=== PATIENT | female | born 1995 | race Caucasian/White ===

== ENCOUNTER 2020-01-09 14:45 | Outpatient (CLI) | payer OTHER, SELFPAY ==
--- NOTE | 2020-01-09 14:58 | US_ITS ---
WS: [id number] Pelvic ultrasound, 01/09/2020 Clinical Data: DYSMENORRHEA Comparison: Pelvic ultrasound, 01/29/2015. Findings: The uterus measures 7.61 cm x 4.9 cm x 4.0 cm. The endometrium is 0.9 cm. No intrauterine or abnormal intrauterine mass is seen. The left ovary measures 1.9 cm x 1.4 cm x 1.3 cm with no cysts or masses. The right ovary measures 3.4 cm x 2.4 cm x 2.0 cm with no cysts or masses. There are prominent vessels in the left adnexa. US/US pelvic with transvaginal Impression: Negative pelvic ultrasound.
== END 2020-01-09 14:46 | disposition home or self-care (01) ==
LOC: RAD 14:56
PROVIDERS: Family Provider Family Medicine; PCP Family Medicine; Visit Provider Family Medicine
DX: N94.6 Dysmenorrhea, unspecified (principal)
CPT/HCPCS: 76830; 76856

== ENCOUNTER → 2020-02-17 12:40 | Outpatient (BNVA) | payer OTHER, SELFPAY | PROVIDERS: Family Provider Family Medicine; PCP Family Medicine; Referring Provider Family Medicine; Visit Provider Nurse Practitioner Women's Health | DX: A74.9 Chlamydial infection, unspecified (principal); R10.2 Pelvic and perineal pain | CPT/HCPCS: 87491 ==

== ENCOUNTER → 2021-04-19 14:28 | Outpatient (BNVA) | payer OTHER, SELFPAY | PROVIDERS: Family Provider Family Medicine; PCP Family Medicine; Visit Provider Nurse Practitioner Women's Health | DX: N94.10 Unspecified dyspareunia (principal); N85.4 Malposition of uterus; N85.2 Hypertrophy of uterus | CPT/HCPCS: 76830 ==

== ENCOUNTER → 2021-05-19 15:25 | Outpatient (BNVA) | payer OTHER, SELFPAY | PROVIDERS: Family Provider Family Medicine; PCP Family Medicine; Visit Provider Obstetrics & Gynecology | DX: Z01.818 Encounter for other preprocedural examination (principal); Z20.822 Contact with and (suspected) exposure to COVID-19; N30.10 Interstitial cystitis (chronic) without hematuria; R10.2 Pelvic and perineal pain | CPT/HCPCS: 87635 ==

== ENCOUNTER 2021-05-24 11:15 | Day surgery (SDC) | payer OTHER, SELFPAY ==
[2021-05-23 15:12] VITALS: BMI 21.4
[2021-05-24] VITALS (13 sets, daily range): BP systolic 91–129; BP diastolic 53–85; PULSE 68–100; RESP 15–18; TEMP 36.2–37; O2SAT 93–99
[2021-05-24] MEDS: acetaminophen 1,000 MG/100 ML PIGGYBACK 400 MG IV (11:42)
[2021-05-24] MEDS: ketorolac 30 mg/mL INJ IVP (11:43)
[2021-05-24] MEDS: sodium chloride 0.9% 1,000 ML 30 ML IV (11:43)
[2021-05-24] MEDS: CELEcoxib 200 mg Capsule 400 MG PO (11:43)
[2021-05-24] MEDS: gabapentin 300 mg Capsule PO (11:43)
[2021-05-24 11:51] LABS: OR HCG Qualitative Urine Negative (Negative)
[2021-05-24 11:57] LABS: Basophils # 0.1 10^3/uL (0.0-0.1); Basophils % 0.9 %; Eosinophils # 0.4 10^3/uL (0.0-0.8); Eosinophils % 4.7 %; Hematocrit 40.9 % (37.0-47.0); Hemoglobin 13.4 g/dL (11.5-15.3); Lymphocytes # 1.9 10^3/uL (0.8-4.8); Lymphocytes % 21.4 %; Mean Corpuscular HGB Conc 32.8 g/dL (30.0-36.0); Mean Corpuscular Hemoglobin 29.8 pg (28.0-34.0); Mean Corpuscular Volume 91.1 fL (81-99); Mean Platelet Volume 10.5 fL (7.4-10.4); Monocytes # 0.6 10^3/uL (0.2-0.9); Neutrophils # 5.73 10^3/uL (1.8-7.7); Neutrophils % 65.8 %; Nucleated Red Blood Cells % 0 %; Platelet Count 332 10^3/cmm (130-400); Red Blood Count 4.49 10^6/uL (4.1-5.3); Red Cell Distribution Width 11.8 % (12.1-15.1); White Blood Count 8.7 10^3/uL (4.0-10.0)
--- NOTE | 2021-05-24 12:10 | P.ANESASSM_ITS ---
Pre-Anesthetic Assessment Pre-Anesthetic Assessment: Height/Weight: Height 1.63 m Weight 56.699 kg Temp Pulse Resp BP Pulse Ox 98.6 F 82 18 129/85 99 05/24/21 11:29 05/24/21 11:29 05/24/21 11:29 05/24/21 11:29 05/24/21 11:29 Preop Diagnosis: pelvic pain, dyspareunia, suspect endometriosis Proposed Procedure: Operation Date: 05/24/21 14:00 Proposed Procedures p exploratory Laparoscopy [id number] r10.2 n94.1 n80.9(Not Applicable) - Ashely Cantu MD s fulguration of endometriosis(Not Applicable) - Ashely Cantu MD Was Beta Demetrice taken within 24 hours: N/A Was Clonidine taken within 24 hours: N/A Last intake: Intake Last Liquid Date 05/23/21 Last Liquid Time 23:30 Last Solid Date 05/23/21 Last Solid Time 23:30 Social: Social History: No alcohol and No tobacco Exam: Pre-Anes Outpt Exam: alert, oriented x 3, clear to auscultation bilaterally and regular rate & rhythm Airway: Submandibular: WNL Cervical ROM: WNL MP: 2 Dentition: Full History/ROS: No significant history except as noted Neuropsych: Neuropsych: Anxiety and Depression Anesthetic Plan: ASA status: 2 Anesthesia: General Risk of > 500 ml blood loss (7ml/kg in children): No Meds/Allergies Current Medications: Current Medications Generic Name Dose Route Start Last Admin Trade Name Freq PRN Reason Stop Dose Admin Sodium Chloride 1,000 mls @ 30 ml s/hr 05/24/21 11:30 05/24/21 11:43 Sodium Chloride 0.9% IV 05/25/21 11:29 30 mls/hr .Q24H CLAUDIA Administration PFSH Anesthesia PFSH: Medical History History of transfusion of leukocytes Tcells--- had inpatient and home transfusion as a young child No pertinent past medical history neghx: htn,dm,thyroid,dvt/pe PCP: Dr. Mehta Surgical History H/O heart surgery 11 days old History of appendectomy History of lung biopsy Age 53 years old Family History Father Diabetes Hypertension Hyperlipidemia Grandfather Diabetes paternal grandfather Grandmother Family history of thyroid problem Maternal Stroke Maternal Denies family history of Colon cancer Ovarian cancer Heart disease Breast cancer Uterine cancer Data Anesthesia CBC & Chem 7: 05/24/21 11:38 05/24/21 11:38 Other Labs: Laboratory Results - last 48 hr 05/24/21 05/24/21 11:38 11:50 WBC 8.7 RBC 4.49 Hgb 13.4 Hct 40.9 MCV 91.1 MCH 29.8 MCHC 32.8 RDW 11.8 L Plt Count 332 MPV 10.5 H Neut % (Auto) 65.8 Lymph % (Auto) 21.4 [place] % (Auto) 7.0 Eos % (Auto) 4.7 Baso % (Auto) 0.9 Neut # (Auto) 5.73 Lymph # (Auto) 1.9 [place] # (Auto) 0.6 Eos # (Auto) 0.4 Baso # (Auto) 0.1 Nucleated RBC % (auto) 0 Nucleated RBCs # 0.0 Urine HCG, Qual Negative Cardiac Studies: No Data to Display
[2021-05-24 12:21] LABS: Anion Gap 13.6 (5-19); Blood Urea Nitrogen 8 mg/dL (6-20); Calcium 8.8 mg/dL (8.5-10.5); Carbon Dioxide 24 mmol/L (22-29); Chloride 104 mmol/L (98-107); Glucose 87 mg/dL (65-115); Osmolality Calculated 284 mOsm/kg (285-295); Potassium 3.6 mmol/L (3.5-5.1); Sodium 138 mmol/L (136-145)
--- NOTE | 2021-05-24 12:53 | W.PM.OPSUD ---
Surgery/Procedure H&P Update DATE OF PROCEDURE: May 24, 2021 DATE H&P PERFORMED: 05/24/21 H&P UPDATE INFORMATION: I have reviewed H&P completed within last 30 days, I have examined patient prior to procedure and Changes to prior documentation as noted here CHANGES TO PREVIOUS DOCUMENTATION: I will be performing diagnostic laparoscopy with removal of endometriosis, cystoscopy and tubal lavage. The patient agrees with the change to documentation. PREOP DIAGNOSIS: pelvic pain, dyspareunia, suspect endometriosis PLANNED PROCEDURE: Operation Date: 05/24/21 14:00 Proposed Procedures p exploratory Laparoscopy [id number] r10.2 n94.1 n80.9(Not Applicable) - Ashely Cantu MD s fulguration of endometriosis(Not Applicable) - Ashely Cantu MD
--- NOTE | 2021-05-24 14:44 | P.OP_ITS ---
Operative Report Date of procedure: May 24, 2021 Pre-op Diagnosis: pelvic pain, dyspareunia, suspect endometriosis Post-op diagnosis: same Post-op Findings: normal uterus, tubes and ovaries. endometriosis in the cul-de-sac. hypervascularity in the bladder Procedure Done: laparoscopy, fulgaration of endometriosis, cystoscopy, tubal lavage Pathology: none sent Anesthesia: General Estimated blood loss (mL): 2 IV fluids (mL): 700 Urine output (mL): 20 Complications: none Findings: normal appearing uterus, tubes and ovaries. endometriosis in cul-de-sac. Normal cystoscopy, no dye spilled with tubal lavage, but very easy to push fluid Condition: stable Disposition: PACU Procedure: The patient was taken to the operating room where general anesthesia was administered and found to be adequate. She was prepped and draped in the normal sterile fashion in the dorsal lithotomy position in Anurag stirrups. A weighted speculum was placed into the vagina and the anterior lip of the cervix grasped with a single-tooth tenaculum. A [employer] uterine manipulator was placed. A Johnson catheter was placed. The weighted speculum was removed. Attention was turned to the abdomen after the gloves were changed. A 5 mm infraumbilical incision was made and carried down to the underlying layer of fascia. Using the 5 mm trocar and the scope the trocar was placed under direct visualization. The pelvis was visualized and found to be [ ]. 2 additional 5 mm ports were placed. One on the right and 1 on the left lower abdomen. These were placed under direct visualization. The uterus was elevated out of the pelvis and the entire pelvis visualized. There were several endometriosis lesions in the cul-de-sac. The uterus appeared to be normal. The right adnexa appeared to be normal. The left adnexa appeared to be normal. Using a spatula and cautery I cauterized the endometriosis lesions. There was one lesion over the midline of the bladder that I was unable to cauterize. There was excellent hemostasis. Using the ZUM[employer] manipulator 80 mL of dilute methylene blue was slowl y pushed through the manipulator and into the uterus. There was never any blue spill. The liquid pushed easily through the manipulator and into the uterus. After 80 mL was pushed I did not 1 of push any more fluid into the uterus and the procedure was abandoned. Attention was then turned to cystoscopy. The cystoscope was advanced into the bladder. The bladder appeared hypervascular but not consistent with interstitial cystitis. The cystoscope was removed. The trochars were removed under direct visualization and the abdomen desufflated. The uterine manipulator was removed as well as the Johnson catheter. Incisions were closed using 3-0 Vicryl and skin glue. The patient tolerated the procedure well. Sponge lap and needle counts were correct x3. Taken to the recovery room in stable condition.
[2021-05-24] MEDS: fentaNYL 50 mcg/mL INJ 2mL IVP ×2 (14:50→14:55)
--- NOTE | 2021-05-24 15:04 | PM.DCS ---
Discharge Providers Date of Discharge: May 24, 2021 Attending Provider at Discharge: Ashely Cantu MD Primary Care Provider: Roberta Mehta MD Diagnoses at Discharge Discharge Diagnosis (1) Postoperative state: Status: Acute Reason for Visit Reason for Visit: fulguration of endometriosis Hospital Course Hospital Course The patient was admitted for surgery. She did well postoperatively and was ready for discharge. Discharge Data Data Completed and Pending: Pending at discharge Category Date Time Status ES surgery / GI i mages Routine Exams 05/24/21 12:54 Taken Urine Culture [facility] 05/24/21 11:34 Received Labs from last 24 hours 05/24/21 05/24/21 05/24/21 11:50 11:38 11:38 WBC 8.7 RBC 4.49 Hgb 13.4 Hct 40.9 MCV 91.1 MCH 29.8 MCHC 32.8 RDW 11.8 L Plt Count 332 MPV 10.5 H Neut % (Auto) 65.8 Lymph % (Auto) 21.4 [place] % (Auto) 7.0 Eos % (Auto) 4.7 Baso % (Auto) 0.9 Neut # (Auto) 5.73 Lymph # (Auto) 1.9 [place] # (Auto) 0.6 Eos # (Auto) 0.4 Baso # (Auto) 0.1 Nucleated RBC % (a uto) 0 Nucleated RBCs # 0.0 Sodium 138 Potassium 3.6 Chloride 104 Carbon Dioxide 24 Anion Gap 13.6 BUN 8 Creatinine 0.5 GFR Calculation 148.0 H Glucose 87 Calculated Osmolal ity 284 L Calcium 8.8 Urine HCG, Qual Negative Vitals: Last Vital Signs Temp 97.2 F L 05/24/21 14:43 Pulse 79 05/24/21 15:00 Resp 17 05/24/21 15:00 BP 113/79 05/24/21 15:00 Pulse Ox 97 05/24/21 15:00 Discharge Plan Discharge Patient Disposition: Home Condition: Stable Prescriptions: New hydrocodone-acetaminophen 5-325 mg tablet 1 tab PO Q4H Qty: 20 RF: 0 Continued citalopram [Celexa] 20 mg tablet 20 mg PO DAILY RF: 0 Premarin 0.625 mg/gram cream 0.3125 mg vaginal .twice weekly Qty: 30 RF: 4 norgestimate-ethinyl estradiol [Sprintec (28)] 0.25-35 mg-mcg tablet 1 tab PO QDAY Qty: 84 RF: 4 ibuprofen 200 mg capsule 200 mg PO Q6H PRN (Reason: pain) RF: 0 Discontinued acetaminophen [Tylenol] 325 mg capsule 325 mg PO QID PRN (Reason: Pain) RF: 0 Discharge Orders: Discharge Order (Routine); Ordered 05/24/21 Ordered By: Ashely Cantu Discharge Attestations Time Spent in Discharge Care*: less than 30 min Quality Metrics Clinical Quality Measures During this hospital stay, did patient experience: None Coding Level of Care Code Acute Chg FW DC note Diagnoses Postoperative state Z98.890
[2021-05-24] MEDS: ondansetron 2 mg/ML SDV 2 mL 4 MG IVP (15:06)
[2021-05-24] MEDS: metoclopramide 5 mg/mL SDV 2 mL 10 MG IVP (15:13)
[2021-05-24] MEDS: diphenhydrAMINE 50 mg/mL SDV 1mL 12.5 MG IVP (15:15)
--- NOTE | 2021-05-24 15:39 | ANE.PACU2 ---
Inpatient post-anesthesia follow up: Airway intact: Yes Vital signs: Temperature 97.3 F Pulse Rate 72 Respiratory Rate 17 Blood Pressure 94/61 Pulse Oximetry 95 Oxygen Delivery Me thod Room Air Oxygen Flow Rate Fraction of Inspir ed Oxygen Hydration adequate: Yes Nausea and vomiting: Yes Pain level: 2 Mental status: Baseline
[2021-05-24] MEDS: HYDROcodone-acetaminophen 5-325 mg Tablet 1 TAB PO (16:11)
--- NOTE | 2021-05-24 16:11 | SUR.OPER ---
Patient was treated for nausea and vomiting in PACU, upon arrival to [facility]PS issue has resolved. Patient has no complaints of nausea, drinking sprite and eating saltine crackers. Patient was complaining of pain 5/10 and was given pain medication PO. Will plan to discharge.
== END 2021-05-24 16:38 | disposition home or self-care (01) ==
PROVIDERS: PCP Family Medicine; Visit Provider Obstetrics & Gynecology
PROC: (CPT 49320; principal; 2021-05-24 13:50)
PROC: (CPT 58999; 2021-05-24 13:50)
DX: N80.3 Endometriosis of pelvic peritoneum (principal); R10.2 Pelvic and perineal pain; N94.10 Unspecified dyspareunia; Z82.49 Family history of ischemic heart disease and other diseases of the circulatory system; Z83.3 Family history of diabetes mellitus
CPT/HCPCS: 58662; 36415; 51702; 80048; 81025; 84703; 85025; 87086; 96365; J0690; J1100; J1200; J1885; J2405; J2704; J2710; J2765; J3010; J3490; J7030; Q9968

== ENCOUNTER 2024-01-12 11:03 | Outpatient (CLI) | payer OTHER, SELFPAY ==
--- NOTE | 2024-01-12 12:02 | XRR_ITS ---
PROCEDURE INFORMATION: Exam: XR Right Foot Exam date and time: 01/12/2024 12:05 PM Age: 28 years old Clinical indication: Injury or trauma; Fall; Puncture; Right; Foreign body involvement not specified; Patient HX: RT foot pain after slipping on wooden step; Open wound to area of base of 1st RT metatarsal TECHNIQUE: Imaging protocol: Radiologic exam of the right foot. Views: 3 or more views. COMPARISON: No relevant prior studies available. FINDINGS: Bones/joints: Normal. Soft tissues: Normal. XR/XR foot RT min 3V* [id number] IMPRESSION: No acute findings.
== END 2024-01-12 11:04 | disposition home or self-care (01) ==
PROVIDERS: PCP Family Medicine; Visit Provider Registered Nurse Neonatal Intensive Care
DX: S91.301A Unspecified open wound, right foot, initial encounter (principal); W10.8XXA Fall (on) (from) other stairs and steps, initial encounter
CPT/HCPCS: 73630